=== PATIENT | male | born 1940 | race African-American/Black ===

== ENCOUNTER 2021-02-01 20:16 | Inpatient (IN) | payer MEDICARE, BC ==
[2021-02-01 21:34] LABS: #Monocytes 0.8 10x3/uL (0.0-1.1); #Neutrophils 8.8 10x3/uL (1.5-8.4); %Basophils 0.4 % (0.0-2.0); %Eosinophils 0.3 % (0.0-6.0); %Lymphocytes 7.4 % (18.0-47.0); %Monocytes 7.7 % (0.0-10.0); %Neutrophils 83.7 % (40.0-75.0); Hemoglobin 13.7 g/dL (13.5-17.5); Mean Corpuscular HGB CONC 35.7 g/dL (32.0-36.0); Mean Corpuscular Hemoglobin 32.1 pg (27.0-33.0); Mean Corpuscular Volume 89.9 fl (81.2-95.1); Mean Platelet Volume 9.4 fl (7.4-10.4); Platelet Count 165 10x3/uL (150-450); RBC Distribution Width 12.1 % (11.5-14.5); Red Blood Cell (RBC) Count 4.27 10x6/uL (4.32-5.72); White Blood Cell (WBC) Count 10.6 10x3/uL (3.5-10.5)
[2021-02-01 21:49] LABS: ALT (SGPT) 14 U/L (8-55); AST (SGOT) 25 U/L (5-34); Albumin 3.9 g/dL (3.4-4.8); Alkaline Phosphatase 57 U/L (40-110); Anion Gap 17 mmol/L (10-20); BUN (Urea Nitrogen) 14 mg/dL (8.4-25.7); CK (CPK) 237 U/L (30-200); Calc. Creatinine Clearance 0 mL/min (70-130); Calcium 8.8 mg/dL (7.8-10.44); Carbon Dioxide 20 mmol/L (23-31); Chloride 96 mmol/L (98-107); Globulin 2.5 g/dL (2.4-3.5); Glucose 99 mg/dL (83-110); Lipase 23 U/L (8-78); Magnesium 1.8 mg/dL (1.6-2.6); Potassium 4.1 mmol/L (3.5-5.1); Protein, Total 6.4 g/dL (5.8-8.1); Sodium 129 mmol/L (136-145)
[2021-02-01 22:11] LABS: CKMB 3.9 ng/mL (0-6.6)
[2021-02-01] MEDS ORDERED: HYDROcodone/Acetaminophen 5/325 mg Tablet PO PRN (22:44)
[2021-02-01] MEDS ORDERED: Calcium Carbonate 500 MG ChewTAB PO PRN (22:44)
[2021-02-01] MEDS ORDERED: Guaifenesin DM 100-10/5 ML UDCUP PO PRN (22:44)
[2021-02-01] MEDS ORDERED: Senokot S 8.6-50 MG TAB PO PRN (22:44)
[2021-02-01] MEDS ORDERED: Acetaminophen 325 MG TAB PO PRN (22:44)
[2021-02-01] MEDS ORDERED: Ondansetron PF 4 MG/2 ML Vial IVP PRN (22:44)
[2021-02-01] MEDS ORDERED: Magnesium Sulfate/D5W 1 GM/100 ML BAG IVPB SCH (23:00)
[2021-02-01] MEDS ORDERED: Thiamine HCl 200 MG/2 ML VIAL SLOW IVP SCH (23:00)
[2021-02-02 00:41] VITALS: BMI 27.0
[2021-02-02 02:41] LABS: Bilirubin Neg (Negative); Blood, Urine 25 (Negative); Clarity Clear (Clear); Glucose, Urine (Dipstick) Normal (Negative); Ketone, Urine Negative (Negative); Leukocyte Negative (Negative); Nitrite Negative (Negative); Protein, Urine (Dipstick) Negative (Neg-Trace); Specific Gravity, Urine 1.005 (1.002-1.036); Urobilinogen Normal mg/dL (Less than 2); pH, Urine 6.5 (5.0-9.0)
[2021-02-02 02:49] LABS: Bacteria/HPF None Seen HPF (None Seen); Mucous/LPF None Seen LPF (<2+); RBC/HPF 0-3 HPF (0-3); Squamous Epithelial None Seen HPF (0-3); WBC/HPF None Seen HPF (0-3)
[2021-02-02 03:13] LABS: SARS-CoV-2 NAA Rapid Test Not Detected (NotDetected)
[2021-02-02 05:04] LABS: #Eosinphils 0.1 10x3/uL (0.0-0.5); #Monocytes 0.8 10x3/uL (0.0-1.1); #Neutrophils 5.3 10x3/uL (1.5-8.4); %Basophils 0.4 % (0.0-2.0); %Eosinophils 1.1 % (0.0-6.0); %Lymphocytes 21.6 % (18.0-47.0); %Monocytes 10.1 % (0.0-10.0); %Neutrophils 66.5 % (40.0-75.0); Hemoglobin 13.9 g/dL (13.5-17.5); Mean Corpuscular HGB CONC 35.2 g/dL (32.0-36.0); Mean Corpuscular Hemoglobin 31.9 pg (27.0-33.0); Mean Corpuscular Volume 90.6 fl (81.2-95.1); Mean Platelet Volume 9.6 fl (7.4-10.4); Platelet Count 167 10x3/uL (150-450); RBC Distribution Width 12.2 % (11.5-14.5); Red Blood Cell (RBC) Count 4.36 10x6/uL (4.32-5.72)
[2021-02-02 05:30] LABS: Anion Gap 11 mmol/L (10-20); BUN (Urea Nitrogen) 14 mg/dL (8.4-25.7); CK (CPK) 1074 U/L (30-200); Calc. Creatinine Clearance 57 mL/min (70-130); Calcium 8.9 mg/dL (7.8-10.44); Carbon Dioxide 24 mmol/L (23-31); Cardiac Risk 3.6 (Less than 4.5); Chloride 102 mmol/L (98-107); Cholesterol 170 mg/dl (< 200 Desired); Glucose 99 mg/dL (83-110); HDL Cholesterol 47 mg/dL (>60 Neg Risk); LDL Cholesterol, Calculated 106 mg/dL; Potassium 4.2 mmol/L (3.5-5.1); Sodium 133 mmol/L (136-145); Triglycerides 84 mg/dL (Less than 150)
[2021-02-02 05:50] LABS: Thyroid Stimulating Hormone 0.7508 uIU/mL (0.35-4.94)
[2021-02-02 06:13] LABS: CKMB 8.3 ng/mL (0-6.6)
[2021-02-02] MEDS: Multivitamin W/ Minerals 1 TAB PO SCH (08:27)
[2021-02-02] MEDS: Folic Acid 1 MG TAB PO SCH (08:28)
[2021-02-02] MEDS: Apixaban 2.5 MG TAB PO SCH ×2 (08:28→21:08)
[2021-02-02] MEDS ORDERED: Metoprolol Tartrate 25 MG TAB PO SCH (09:00)
[2021-02-02 09:11] LABS: CKMB 8.8 ng/mL (0-6.6)
[2021-02-02] MEDS ORDERED: Lisinopril 5 MG TAB PO SCH (13:45)
[2021-02-02] MEDS: Sodium Chloride 0.9% 1,000 ML IV SCH (17:49)
[2021-02-02] MEDS: Carvedilol 3.125 MG TAB PO SCH (17:49)
[2021-02-02] MEDS ORDERED: Thiamine HCl 200 MG/2 ML VIAL SLOW IVP SCH (21:00)
[2021-02-03 04:49] LABS: #Eosinphils 0.2 10x3/uL (0.0-0.5); #Monocytes 0.5 10x3/uL (0.0-1.1); %Basophils 0.6 % (0.0-2.0); %Eosinophils 4.5 % (0.0-6.0); %Lymphocytes 27.8 % (18.0-47.0); %Monocytes 9.3 % (0.0-10.0); %Neutrophils 57.6 % (40.0-75.0); Hemoglobin 13.1 g/dL (13.5-17.5); Mean Corpuscular HGB CONC 34.6 g/dL (32.0-36.0); Mean Corpuscular Hemoglobin 32.1 pg (27.0-33.0); Mean Corpuscular Volume 92.9 fl (81.2-95.1); Mean Platelet Volume 9.5 fl (7.4-10.4); Platelet Count 147 10x3/uL (150-450); RBC Distribution Width 12.5 % (11.5-14.5); Red Blood Cell (RBC) Count 4.08 10x6/uL (4.32-5.72); White Blood Cell (WBC) Count 5.1 10x3/uL (3.5-10.5)
[2021-02-03 05:04] LABS: Anion Gap 10 mmol/L (10-20); BUN (Urea Nitrogen) 14 mg/dL (8.4-25.7); CK (CPK) 608 U/L (30-200); Calc. Creatinine Clearance 66 mL/min (70-130); Calcium 8.5 mg/dL (7.8-10.44); Carbon Dioxide 24 mmol/L (23-31); Chloride 105 mmol/L (98-107); Glucose 92 mg/dL (83-110); Sodium 135 mmol/L (136-145)
[2021-02-03 05:10] LABS: CKMB 3.6 ng/mL (0-6.6)
[2021-02-03] MEDS: Sodium Chloride 0.9% 1,000 ML IV SCH ×2 (06:00→07:55)
[2021-02-03] MEDS: Multivitamin W/ Minerals 1 TAB PO SCH (07:55)
[2021-02-03] MEDS: Folic Acid 1 MG TAB PO SCH (07:55)
[2021-02-03] MEDS: Carvedilol 3.125 MG TAB PO SCH (07:55)
[2021-02-03] MEDS: Apixaban 2.5 MG TAB PO SCH (07:56)
[2021-02-03] MEDS ORDERED: Apixaban 2.5 MG TAB PO SCH (08:30)
[2021-02-03] MEDS ORDERED: Lisinopril 5 MG TAB PO SCH (09:00)
[2021-02-03 16:15] VITALS: BP 167/73; TEMP 98.3
[2021-02-03] MEDS ORDERED: Apixaban 5 MG TAB PO SCH (21:00)
== END 2021-02-03 17:17 | DRG 564 ==
LOC: CSHERS 20:16 → CSHTELE 20:17 → OBSVTOIN 02-02 16:15
PROVIDERS: ADMIT Student in an Organized Health Care Education/Training Program; ATTEND Internal Medicine
DX: T79.6XXA Traumatic ischemia of muscle, initial encounter (principal); G93.41 Metabolic encephalopathy; N17.9 Acute kidney failure, unspecified; I13.0 Hypertensive heart and chronic kidney disease with heart failure and stage 1 through stage 4 chronic kidney disease, or unspecified chronic kidney disease; I50.22 Chronic systolic (congestive) heart failure; E87.1 Hypo-osmolality and hyponatremia; E86.0 Dehydration; R79.89 Other specified abnormal findings of blood chemistry; Z20.822 Contact with and (suspected) exposure to COVID-19; I48.0 Paroxysmal atrial fibrillation; N18.2 Chronic kidney disease, stage 2 (mild); W18.30XA Fall on same level, unspecified, initial encounter; G25.0 Essential tremor; F10.10 Alcohol abuse, uncomplicated; Z96.643 Presence of artificial hip joint, bilateral; I73.9 Peripheral vascular disease, unspecified; Z87.891 Personal history of nicotine dependence; Z79.899 Other long term (current) drug therapy; Z79.01 Long term (current) use of anticoagulants
CPT/HCPCS: 0240U; 36415; 70450; 70551; 71045; 80048; 80053; 80061; 81001; 82550; 82553; 82607; 82746; 83690; 83735; 83880; 84443; 84484; 85025; 86850; 86900; 86901; 93005; 93306; 96374; 96375; G0378; J3411; J3475; J7050